=== PATIENT | male | born 1985 | race African-American/Black ===

== ENCOUNTER 2017-03-12 20:57 | Emergency (ER) | payer MEDICAID ==
[~2017-03-12] VITALS: Ht 175.3 cm; Wt 68.9 kg
[2017-03-12 21:27] VITALS: BP 133/65; Ht 175.3 cm; Wt 68.9 kg
== END 2017-03-13 04:08 | disposition left against medical advice (07) ==
LOC: ED 20:57
DX: Z53.21 Procedure and treatment not carried out due to patient leaving prior to being seen by health care provider (principal)